=== PATIENT | female | born 1950 | race Caucasian/White ===

== ENCOUNTER → 2018-11-10 | Day surgery (SDC) | payer MEDICARE, BC ==
[~2018-11-10] MED LIST: Lactated Ringers 1,000 ML IV SCH; Propofol 200 MG/20 ML SDV IV ONE
--- NOTE | 2018-11-10 11:54 | OR ---
DATE OF OPERATION: 11/10/2018 PREOPERATIVE DIAGNOSIS: 1. EPIGASTRIC PAIN. 2. GASTROESOPHAGEAL REFLUX DISEASE. POSTOPERATIVE DIAGNOSIS: 1. EPIGASTRIC PAIN. 2. GASTROESOPHAGEAL REFLUX DISEASE. SURGEON: Cb Mcgarry MD PROCEDURE: DIAGNOSTIC EGD WITH BIOPSY X1, JUN. ANESTHESIA: MAC via A R COLLECTIONS REP. COMPLICATIONS: None. SPECIMEN: 1. Antral JUN. 2. EG junction biopsy x1. FINDINGS: 1. Full-length EGD. 2. No signs of peptic ulcer disease. 3. Small hiatal hernia with nonobstructing Schatzki's ring. Minimal if any distal esophagitis. RECOMMENDATIONS: Medical followup with Dr. Lopez. INDICATIONS: The patient apparently has been having some vague dyspepsia and reflux. Dr. Lopez sent her for diagnostic EGD. DESCRIPTION OF PROCEDURE: The patient was prepped and draped, placed in the left lateral decubitus position. A lubricated Olympus gastroscope was inserted over a bit, advanced to cricopharyngeus area, and easily intubated in the esophagus. The esophageal lining was benign in its entire course. The Z-line was crisp and sharp at about 39 cm. The patient has a small or mild-sized hiatal hernia present with a nonobstructing Schatzki's ring. There may have been a little bit of thickening at 1 area of the EG junction. We did do a biopsy of that area, but no signs of any obvious esophagitis or Mcguire's changes. The scope was advanced into the stomach, through the pylorus, into the second portion of the duodenum. This and the duodenal bulb were unremarkable. The scope was brought back into the stomach and retroflexed. The upper fundus and cardia were benign. Upon straightening, the rest of the fundus and antrum appeared completely unremarkable. There were no polyps, mass, ulceration, signs of any peptic ulcer disease, gastritis, etc. CLOtest was obtained. Air was suctioned, scope removed without complication. YOLETTE/ANNI /[id number]
== END ==
LOC: CC.SDS 06:27
PROVIDERS: ATTEND Family Medicine
DX: K21.9 Gastro-esophageal reflux disease without esophagitis (principal); K44.9 Diaphragmatic hernia without obstruction or gangrene; I10 Essential (primary) hypertension; E03.9 Hypothyroidism, unspecified; E78.5 Hyperlipidemia, unspecified; Z79.1 Long term (current) use of non-steroidal anti-inflammatories (NSAID); Z79.82 Long term (current) use of aspirin; Z79.3 Long term (current) use of hormonal contraceptives; Z79.899 Other long term (current) drug therapy; Z91.048 Other nonmedicinal substance allergy status
CPT/HCPCS: 87081; J2704; J7120

== ENCOUNTER → 2020-06-20 | Day surgery (SDC) | payer MEDICARE, BC ==
[~2020-06-20] MED LIST changes: +Ketamine 200 MG/20 ML MDV ONE; -Lactated Ringers 1,000 ML IV SCH; +Lidocaine 2% 5 ML SDV ONE; +Ondansetron 4 MG/2 ML SDV ONE; -Propofol 200 MG/20 ML SDV IV ONE; +Propofol 200 MG/20 ML SDV ONE; +fentaNYL 100 MCG/2 ML SDV ONE
[2020-06-20] MEDS: Lactated Ringers 1,000 ML IV ONE (12:12)
--- NOTE | 2020-06-20 12:18 | OR ---
DATE OF OPERATION: 06/20/2020 PREOPERATIVE DIAGNOSIS: 1. GASTROESOPHAGEAL REFLUX DISEASE. 2. ALTERED BOWEL HABITS. POSTOPERATIVE DIAGNOSIS: 1. GASTROESOPHAGEAL REFLUX DISEASE. 2. ALTERED BOWEL HABITS. SURGEON: Cb Mcgarry MD PROCEDURE: 1. DIAGNOSTIC EGD WITH BIOPSIES X3, JUN. 2. FULL-LENGTH COLONOSCOPY WITH RANDOM BIOPSIES X5. ANESTHESIA: MAC. COMPLICATIONS: None. SPECIMEN: 1. Antral biopsy x1. 2. Antral JUN. 3. Fundal biopsy x2. 4. Random colon biopsies x5. FINDINGS: 1. Full-length EGD. 2. Diffuse gastritis without ulceration or erosion. 3. Small hiatal hernia with spontaneous GERD. No distal esophagitis, stricturing, ulceration, or Mcguire's changes. 4. Full-length diagnostic colonoscopy. 5. No colon abnormality seen. RECOMMENDATIONS: Recommend a trial of Dexilant for patient's ongoing reflux without improvement. Routine colonoscopy every 10 years and follow up with Dr. Lopez for path reports. INDICATIONS: The patient had been having some ongoing issues with abdominal pain, GERD, and diarrhea. Dr. Lopez sent her for upper and lower diagnostic endoscopies. DESCRIPTION OF PROCEDURE: The patient was prepped and draped, placed in the left lateral decubitus position. A lubricated Olympus gastroscope was inserted over a bit, advanced to cricopharyngeus area, and easily intubated into the esophagus. The esophageal lining was benign in its entire course. The Z-line was crisp and sharp at 36 cm. A small hiatal hernia was present with some minimal spontaneous reflux seen. There was no distal esophagitis, stricturing, ulceration, or Mcguire's changes. The scope was advanced into the stomach, through the pylorus, and into the second portion of the duodenum. This and the duodenal bulb appeared benign. It was hard to get too far into the second portion of the duodenum as the patient was very tortuous there. The scope was brought back into the stomach and retroflexed. The upper fundus and cardia were unremarkable, but upon straightening, the rest of the fundus and most of the antrum had changes of gastritis, most severe in the fundal region. Did 2 biopsies of the fundus and 1 of the antrum. There were no specific ulcerations or erosions. No polyps or masses. CLOtest was obtained. Air was then suctioned and the scope removed without complication. A lubricated Olympus colonoscope was then inserted and ultimately advanced to the cecum. The patient was very tortuous throughout the length of her colon, but the scope advanced without problem. The bowel prep was adequate. Upon withdrawal of the scope throughout the entire length of the colon, I could find no polyps, masses, ulceration, or bleeding sites. No vascular abnormalities or signs of colitis. No diverticula. We did do random biopsies due to her diarrhea at the cecum, ascending, transverse, sigmoid, and rectal areas. Retroflexion of the scope in the rectum showed no perianal lesions. Air was then suctioned and the scope removed without complication. YOLETTE/ANNI /[id number]
== END ==
LOC: CC.SDS 10:14
PROVIDERS: ATTEND Family Medicine
DX: R19.4 Change in bowel habit (principal); Q43.8 Other specified congenital malformations of intestine; K29.50 Unspecified chronic gastritis without bleeding; K44.9 Diaphragmatic hernia without obstruction or gangrene; K21.9 Gastro-esophageal reflux disease without esophagitis; Z01.812 Encounter for preprocedural laboratory examination; Z20.828 Contact with and (suspected) exposure to other viral communicable diseases; I10 Essential (primary) hypertension; E78.5 Hyperlipidemia, unspecified
CPT/HCPCS: 00813; 87081; J2001; J2405; J2704; J3010; J7120

== ENCOUNTER 2023-02-08 11:15 | Emergency (ER) | payer MEDICARE, BC ==
[2023-02-08 11:34] LABS: APPEARANCE,URINE SLIGHTLY CLOUDY (CLEAR); BILIRUBIN,URINE NEGATIVE (NEGATIVE); COLOR,URINE YELLOW (YELLOW); GLUCOSE,URINE NEGATIVE (NEGATIVE); KETONES,URINE 15 mg/dL (NEGATIVE); LEUKOCYTE ESTERASE,URINE NEGATIVE (NEGATIVE); NITRITE,URINE NEGATIVE (NEGATIVE); OCCULT BLOOD,URINE TRACE-INTACT (NEGATIVE); PH,URINE 7.5 (4.5-8.0); PROTEIN,URINE TRACE mg/dL (NEGATIVE); UROBILINOGEN,URINE 0.2 EU/dL (0.2-1.0)
[2023-02-08] MEDS: Ondansetron 4 MG Tab.DIS PO STA (11:42)
[2023-02-08] MEDS: HYDROmorphone 0.5 MG/0.5 ML Syringe SUBCUT STA (11:42)
[2023-02-08 11:43] LABS: BACTERIA,URINE MODERATE /HPF (NOT SEEN); EPITHELIAL CELLS,URINE FEW /HPF (NOT SEEN); MUCUS,URINE FEW /HPF (NOT SEEN); WBC,URINE NOT SEEN /HPF (0-5)
== END 2023-02-08 12:21 | disposition home or self-care (01) ==
LOC: CC.ED 11:15
DX: M54.42 Lumbago with sciatica, left side (principal); Z91.041 Radiographic dye allergy status
CPT/HCPCS: 74176; 81001; 96372; 99283; 99284; A9270-GY; J1170

== ENCOUNTER 2024-02-05 14:55 | Emergency (ER) | payer OTHER, MEDICARE, BC | END 2024-02-05 16:45 | disposition home or self-care (01) | LOC: CC.ED 14:55 | DX: S70.02XA Contusion of left hip, initial encounter (principal); I10 Essential (primary) hypertension; K21.9 Gastro-esophageal reflux disease without esophagitis; Z90.710 Acquired absence of both cervix and uterus; Z91.041 Radiographic dye allergy status; Z79.899 Other long term (current) drug therapy; Z79.890 Hormone replacement therapy; V49.49XA Driver injured in collision with other motor vehicles in traffic accident, initial encounter; Y93.89 Activity, other specified | CPT/HCPCS: 99283 ==